=== PATIENT | female | born 2000 | race Two or more races ===

== ENCOUNTER 2019-02-06 01:39 | Emergency (ER) | payer OTHER ==
[~2019-02-06] VITALS: Ht 165.1 cm; Wt 54.4 kg
--- NOTE | 2019-02-06 02:02 | NUR ---
PT CAME TO ER BED 7 BIB RA C/O ALCOHOL INTOXICATION. PT'S FRIEND STATES THAT SHE HAD 5 SHOTS AND WAS VERY DRUNK. PATIENT IS LETHARGIC. ACCORDING TO FRIEND, VOMITED W/ STREAK OF BLOOD. RESPONSIVE TO VERBAL AND PAINFUL STIMULI. BREATHING EVENLY AND UNLABORED. CONNECTED TO MONITOR. PLACED IN HIGH-FOWLERS POSITION.
[2019-02-06] MEDS ORDERED: ONDANSETRON 4 MG TAB.RAPDIS ONE (02:12)
[2019-02-06] MEDS ORDERED: ONDANSETRON HCL/PF 4 MG/2 ML VIAL ONE (02:27)
[2019-02-06] MEDS ORDERED: ONDANSETRON 4 MG TAB.RAPDIS SL ONE (02:30)
[2019-02-06] MEDS ORDERED: ONDANSETRON HCL/PF 4 MG/2 ML VIAL IM ONE (02:30)
[2019-02-06 02:45] VITALS: BP 117/71
--- NOTE | 2019-02-06 02:45 | NUR ---
Patient discharged to home in stable condition. Written and verbal after care instructions given. Patient verbalizes understanding of instruction. Patient's friend will call "[employer]" to give them a ride home.
== END 2019-02-06 02:46 | disposition home or self-care (01) ==
LOC: ER 01:41
DX: F10.229 Alcohol dependence with intoxication, unspecified (principal); R11.10 Vomiting, unspecified; Y90.9 Presence of alcohol in blood, level not specified
CPT/HCPCS: 96372; 99283; J2405; Q0162